=== PATIENT | male | born 1970 | race African-American/Black ===

== ENCOUNTER → 2018-03-12 | Day surgery (SDC) | payer OTHER ==
[~2018-03-12] VITALS: Ht 165.1 cm; Wt 85.7 kg
[~2018-03-12] MED LIST: ALLOPURINOL300 M1 PO; DILTIAZEM 12HR120 MG PO; METAMUCIL660 GM PO
--- NOTE | 2018-03-12 08:41 | Operative Report ---
Operative/Inv Procedure Report Surgery Date: 03/12/18 Name of Procedure: right ESWL Pre-Operative Diagnosis: right renal stones Post-Operative Diagnosis: same Estimated Blood Loss: scant Surgeon/Waterproofer: Domi Moran MD Anesthesia: local monitored anesthesi Complications: none Condition: stable Operative Indication: right renal colic and stones Operative/Procedure Note Note: 47yo female with a hx of kidney stones. Patient with right renal colic. He was given the risks, benefits and alternatives of the ESWL. All questions were answered. Patient was taken to the operating room and place on the ESWL room table in the supine position. Timeout was performed. IV sedation was started after she was optimally positioned. The stones were easily identified on th US imaging and it was also visible on fluoroscopy. The ESWL was started at power of 1-15 for 500 shocks followed by power of 16-19 for 500 shocks and then power of 20 for 1500 shocks. The stone was visibly changed at the end of the session however he still had one larger fragment that did not break up well. His breathing did affect the movement of the stone. Patient tolerated the procedure well. He was transferred to the recovery room in stable condition. Findings: large right renal stone that fragmented and did respond well to the ESWL but one still sizeable fragment remaining. Discharge Disposition: Same Day Admissions
== END ==
LOC: STS 01:02
DX: N20.0 Calculus of kidney (principal); Z87.442 Personal history of urinary calculi; I10 Essential (primary) hypertension; K21.9 Gastro-esophageal reflux disease without esophagitis; G47.33 Obstructive sleep apnea (adult) (pediatric)
CPT/HCPCS: J0690